=== PATIENT | male | born 1980 | race Caucasian/White ===

== ENCOUNTER 2016-09-29 18:37 | Emergency (ER) | payer OTHER ==
[~2016-09-29] VITALS: Ht 170.2 cm; Wt 87.7 kg
[2016-09-29 20:04] VITALS: BP 148/99
== END 2016-09-29 20:04 | disposition home or self-care (01) ==
LOC: ED 18:37
DX: L50.9 Urticaria, unspecified (principal); I10 Essential (primary) hypertension; Z79.899 Other long term (current) drug therapy

== ENCOUNTER 2017-01-10 17:44 | Emergency (ER) | payer SELFPAY ==
[~2017-01-10] VITALS: Ht 167.6 cm; Wt 88.0 kg
[2017-01-10 21:45] VITALS: BP 140/88
== END 2017-01-10 21:45 | disposition home or self-care (01) ==
LOC: ED 17:44
DX: G51.0 Bell's palsy (principal); I10 Essential (primary) hypertension
CPT/HCPCS: J7512